=== PATIENT | female | born 1955 | race Asian ===

== ENCOUNTER 2024-07-04 10:55 | Day surgery (SDC) | payer OTHER, SELFPAY ==
[2024-07-04] VITALS (11 sets, daily range): BP systolic 97–150; BP diastolic 63–88; BMI 20.8
[2024-07-04 11:57] LABS: Glucose - Point of Care 106 mg/dl (70-99)
[2024-07-04] MEDS: LOW STRENGTH ASPIRIN 324 MG PO (11:59)
--- NOTE | 2024-07-04 13:22 | ITS.CL.PN ---
[employer]ffic Workforce Representative - Procedure Note
Procedure
Procedure Note:
CARDIAC CATHETERIZATION REPORT
Date of Procedure: 07/04/2024
Referring: Dr. Jamshid Adkins MD
Indication: anginal chest pain
PROCEDURE(S)
1. right heart catheterization
2. left heart catheterization
3. coronary angiography
ACCESS
1. 6F right radial artery (closure: radial band)
2. 5F right antecubital vein (closure: manual hemostasis)
CATHETERS
1. 5F [place]
2. 6F JR4
3. 6F JL3.5
MODERATE SEDATION: 25 minutes of moderate sedation was utilized. An independent medical psychotherapist was present to assist with and help manage the patient's level of consciousness and physiologic status.
HEMODYNAMIC DATA
LV 142/12 (EDP 24) mmHg
AO 140/74 (mean 102) mmHg
RA 12 mmHg
RV 36/7 (EDP 15) mmHg
PA 38/17 (mean 26) mmHg
PCWP 15 mmHg
SaO2 95.5%
SvO2 70.0%
Hb 12.1 g/dL
CO/CI 4.25/2.98 L/min/m2
SVR 1696 dsc*-5
PVR 2.6 Wood units
CORONARY ANGIOGRAPHY
Dominance: right
LM: Large, normal
LAD: Large vessel giving rise to a large branching D1 and wrapping around the apex. There are mild luminal irregularities.
LCx: Large vessel giving rise to a small OM1, small OM2, and several small LPL branches. There are mild luminal irregularities.
RCA: Large caliber vessel giving rise to a small RPDA and small RPL branches. There are mild luminal irregularities.
RADIATION: dose 117.14 mGy; DAP 6.9550 Gy*cm2; fluoroscopy time 3.9 min
CONCLUSIONS
1. Mildly elevated biventricular filling pressures, mild mixed pre and postcapillary pulmonary hypertension, and normal cardiac output
2. No aortic stenosis on hemodynamic pullback
3. Nonobstructive coronary artery disease in a right dominant system as described
RECOMMENDATIONS
1. Secondary prevention of coronary artery disease
2. Further workup for etiology of exertional chest pain and shortness of breath not related to epicardial coronary artery disease. Patient has been noted to have hyperdynamic LV function with flow acceleration in the LVOT on prior echocardiogram.
Although no gradient was observed today on left heart cath, it may be dynamic and it would be reasonable to consider stress echocardiography for assessment of inducible valve gradient. Primary pulmonary etiologies should also be investigated.
Copy to: Dr. Jamshid Adkins MD (solar process engineer); Dr. Phong Amezcua MD (PCP)
Signed: Adalberto Hicks MD, PhD
[2024-07-04] MEDS: NSS 1000 IV (13:23)
[2024-07-04 13:29] LABS: Glucose - Point of Care 97 mg/dl (70-99)
== END 2024-07-04 15:50 | disposition home or self-care (01) ==
LOC: CATH 10:55
PROVIDERS: ATTENDING PHYSICIAN Student in an Organized Health Care Education/Training Program; FAMILY PHYSICIAN Internal Medicine; OTHER PHYSICIAN Internal Medicine Cardiovascular Disease
DX: I27.20 Pulmonary hypertension, unspecified (principal); Z79.82 Long term (current) use of aspirin; Z79.84 Long term (current) use of oral hypoglycemic drugs; Z79.899 Other long term (current) drug therapy; I10 Essential (primary) hypertension
CPT/HCPCS: 99152; 99153; 82962; 93460; C1769; C1894; Q9967